=== PATIENT | female | born 1960 | race Caucasian/White ===

== ENCOUNTER → 2023-05-16 11:03 | Outpatient (REF) | payer OTHER, SELFPAY | LOC: HWWDC 11:03 | PROVIDERS: ATTENDING PHYSICIAN Nurse Practitioner | DX: Z12.31 Encounter for screening mammogram for malignant neoplasm of breast (principal) | CPT/HCPCS: 77063; 77067 ==

== ENCOUNTER → 2023-09-26 12:38 | Outpatient (REF) | payer OTHER, SELFPAY | LOC: WDC 12:38 | PROVIDERS: ATTENDING PHYSICIAN Nurse Practitioner | DX: R92.333 Mammographic heterogeneous density, bilateral breasts (principal) | CPT/HCPCS: 76641 ==

== ENCOUNTER → 2023-11-14 10:39 | Outpatient (REF) | payer OTHER, SELFPAY | LOC: HWRAD 10:39 | PROVIDERS: ATTENDING PHYSICIAN Otolaryngology; FAMILY PHYSICIAN Nurse Practitioner | DX: R51.9 Headache, unspecified (principal); J32.2 Chronic ethmoidal sinusitis | CPT/HCPCS: 70486 ==